=== PATIENT | female | born 1965 ===

== ENCOUNTER → 2024-01-05 11:41 | Outpatient (REF) | payer OTHER, SELFPAY | LOC: DHCBC/DCA 11:41 | PROVIDERS: ATTENDING PHYSICIAN Internal Medicine Interventional Cardiology; FAMILY PHYSICIAN Family Medicine | DX: R00.2 Palpitations (principal); R06.00 Dyspnea, unspecified | CPT/HCPCS: 78452; 93017; A9500; J2785 ==

== ENCOUNTER → 2024-02-04 10:09 | Outpatient (REF) | payer OTHER, SELFPAY | LOC: RCS 10:09 | PROVIDERS: ATTENDING PHYSICIAN Internal Medicine Interventional Cardiology; FAMILY PHYSICIAN Family Medicine | DX: R00.2 Palpitations (principal); R06.00 Dyspnea, unspecified | CPT/HCPCS: 93306 ==